=== PATIENT | male | born 1990 | race Caucasian/White ===

== ENCOUNTER 2019-06-25 10:02 | Emergency (ER) | payer BC, SELFPAY ==
[2019-06-25 10:06] VITALS: BP 185/127; PULSE 93; RESP 18; TEMP 36.6; O2SAT 98
--- NOTE | 2019-06-25 10:43 | ED.SKABFB ---
HPI - Skin/Abscess/Foreign Bdy General Chief complaint: Skin/Abscess/Foreign Body Stated complaint: Bumps to legs Time Seen by Provider: 06/25/19 10:24 Source: patient Mode of arrival: ambulatory Limitations: no limitations History of Present Illness HPI narrative: Patient is a 28-year-old male presents to the emergency department with complaint of lesions to his left lower leg. Patient and his gone hiking earlier this month. Few days ago he noticed bumps on his left lower leg. They were tender to touch and red. Patient tried to pop them thinking they were pimples. The initial lesions have become less red and are now more dark in color and seem to be getting better. Patient noticed a couple of new lesions since the original ones. Patient denies any fever, headache, myalgias, arthralgias, rash, redness or swelling of his lower leg, chest pain, or shortness of breath. complaint: lesion Onset (ago): day(s) Location: LLE Associated symptoms: denies other symptoms Treatments prior to arrival: attempted to drain pus at home (tried to pop lesions) Related Data Allergies Allergy/AdvReac Type Severity Reaction Status Date / Time No Known Allergies Allergy Verified 06/25/19 10:10 Review of Systems Review of Systems: All systems reviewed & are unremarkable except as noted in HPI and below Constitutional: Constitutional: Denies fever(s) and Denies headache(s) Musculoskeletal: Musculoskeletal: Denies myalgias and Denies arthralgias Integumentary/Breasts: Skin/Breast: Denies pruritus, Reports lesions, Denies erythema and Denies rash PMFSH Past Medical History Medical History (Updated 06/25/19 @ 11:00 by Berenice Fagan MD) Hypertension Surgical History Surgical History (Updated 06/25/19 @ 10:50 by Berenice Fagan MD) History of adenoidectomy Social History Social History (Updated 06/25/19 @ 10:50 by Berenice Fagan MD) Smoking status: Never smoker Exam Const: General: cooperative, no acute distress and alert Nutritional Appearance: well nourished and obese morbidly obese Orientation/consciousness: patient oriented x3 Limitations: no limitations Resp: Effort & Inspection: normal respiratory effort Skin: General skin exam: normal color Lesions: lesion noted (1 mildly erythematous, 4 rosal[place]/dark in color) nodule left lower leg tender (Erythematous lesion is mildly tender, others are not) Rashes: no rashes Neuro: General: patient oriented x3 Cognition (Neuro): normal cognition Speech: normal speech Extrem: General: normal to inspection, full ROM and no clubbing, cyanosis or edema Psych: Mental Status: mental status grossly normal Affect: normal affect Attitude: cooperative Course Course Emergency Course: Patient with small lesions on his lower leg folliculitis versus insect bite. Discussed with patient importance of not squeezing at these lesions or attempting to drain anything at home as this often increases the inflammation and chances of infection. Will prescribe antibiotic ointment to use as needed and discussed use of warm compresses if he develops pustule. Advised primary care follow-up for repeat blood pressure and further care if needed. Patient reports his blood pressure had been fine when he had gone for an appointment physical recently. Vital Signs Vital signs: Vital Signs Temperature 97.8 F 06/25/19 10:06 Pulse Rate 93 06/25/19 10:06 Respiratory Rate 18 06/25/19 10:06 Blood Pressure 185/127 H 06/25/19 10:06 Pulse Oximetry 98 06/25/19 10:06 Temperature 97.8 F 06/25/19 10:06 Pulse Rate 93 06/25/19 10:06 Respiratory Rate 18 06/25/19 10:06 Blood Pressure 185/127 H 06/25/19 10:06 Pulse Oximetry 98 06/25/19 10:06 Critical Care Time Critical Care Time Critical Care Time: No Discharge Plan Discharge Clinical Impression: Folliculitis, Abnormal blood pressure Patient Disposition: Home, Self-Care Condition: Stable Ins
== END 2019-06-25 11:19 | disposition home or self-care (01) ==
PROVIDERS: Emergency Provider Emergency Medicine
DX: L73.9 Follicular disorder, unspecified (principal); I10 Essential (primary) hypertension
CPT/HCPCS: 99283